=== PATIENT | female | born 1975 | race Caucasian/White ===

== ENCOUNTER 2021-12-16 15:22 | Outpatient (RCR) | payer OTHER, SELFPAY ==
--- NOTE | 2022-03-03 12:27 | PC.NURSE ---
Pt called today requesting a refill of her Letrozole. This was discussed with ASHOK Cantor and Dr. Yeboah.
== END 2022-06-14 23:59 | disposition home or self-care (01) ==
LOC: CCIC 15:22
PROVIDERS: PCP Family Medicine; Visit Provider Internal Medicine Hematology & Oncology
DX: C50.912 Malignant neoplasm of unspecified site of left female breast (principal); Z17.0 Estrogen receptor positive status [ER+]; Z79.811 Long term (current) use of aromatase inhibitors; R23.2 Flushing; K76.9 Liver disease, unspecified
CPT/HCPCS: 99212; 99213; 99214

== ENCOUNTER 2022-03-09 08:28 | Outpatient (CLI) | payer OTHER, SELFPAY ==
[2022-03-09 09:42] LABS: Albumin* 4.8 g/dL (3.3-5.0); Chloride* 105 mmol/L (96-114)
[2022-03-09 09:43] LABS: Potassium* 4.6 mmol/L (3.6-5.1); Sodium* 142 mmol/L (135-149)
[2022-03-09 09:45] LABS: Aspartate Amino Transferase* 26 U/L (12-35); Bilirubin Total* 0.8 mg/dL (0.1-1.5); Blood Urea Nitrogen* 20 mg/dL (5-24); Carbon Dioxide* 29 mmol/L (20-32); Cholesterol* 244 mg/dL (90-199); Creatinine* 0.9 mg/dL (0.5-1.5); Estimated Glomerular Filt Rate 79 ml/min; Glucose* 85 mg/dL (60-115); Total Protein* 7.3 g/dL (6.0-8.3)
[2022-03-09 09:46] LABS: Alanine Aminotransferase* 25 U/L (4-35); Alkaline Phosphatase* 76 U/L (40-150); Calcium* 10.1 mg/dL (8.4-10.6); HDL Cholesterol* 61 mg/dL (>=50); LDL Cholesterol Calculated 157 mg/dL (<100); Triglycerides* 128 mg/dL (40-149)
== END 2022-03-09 08:29 | disposition home or self-care (01) ==
LOC: NFLDREF 08:28
PROVIDERS: PCP Family Medicine; Visit Provider Family Medicine
DX: Z01.419 Encounter for gynecological examination (general) (routine) without abnormal findings (principal); E78.5 Hyperlipidemia, unspecified
CPT/HCPCS: 80053; 80061

== ENCOUNTER 2022-04-29 10:26 | Outpatient (RCR) | payer OTHER, SELFPAY ==
--- NOTE | 2022-05-07 10:45 | ONC.NURNOTE ---
Reviewed with pt changes in [facility] program and transition of Dr. Yeboah to [facility] returning Spring 2022. Pt would like to continue care here; scheduled to see Leanna Christianson CNP 06/17/22 for 6 mo f/u.
== END 2022-11-04 23:59 | disposition home or self-care (01) ==
PROVIDERS: PCP Family Medicine; Visit Provider Family Medicine
DX: G44.209 Tension-type headache, unspecified, not intractable (principal); R29.3 Abnormal posture; Z51.89 Encounter for other specified aftercare
CPT/HCPCS: 97110; 97161

== ENCOUNTER 2022-05-18 07:07 | Outpatient (CLI) | payer OTHER, SELFPAY | END 2022-05-18 07:08 | disposition home or self-care (01) | LOC: OP CLINIC 07:09 | PROVIDERS: PCP Family Medicine; Visit Provider Surgery | DX: Z12.11 Encounter for screening for malignant neoplasm of colon (principal); K64.4 Residual hemorrhoidal skin tags; K57.30 Diverticulosis of large intestine without perforation or abscess without bleeding | CPT/HCPCS: 45378; 99153; J2250; J2405; J3010 ==

== ENCOUNTER 2022-12-23 11:00 | Outpatient (RCR) | payer OTHER, SELFPAY | END 2023-01-01 23:59 | disposition home or self-care (01) | LOC: CCIC 11:00 | PROVIDERS: PCP Family Medicine; Visit Provider Physician Assistant | DX: C50.912 Malignant neoplasm of unspecified site of left female breast (principal); Z17.0 Estrogen receptor positive status [ER+]; Z79.811 Long term (current) use of aromatase inhibitors; R23.2 Flushing | CPT/HCPCS: 99212; 99213; 99214; 99215 ==

== ENCOUNTER 2023-04-07 07:40 | Outpatient (CLI) | payer OTHER, SELFPAY | END 2023-04-07 07:41 | disposition home or self-care (01) | LOC: NFLDREF 04-08 10:30 | PROVIDERS: PCP Family Medicine; Referring Provider Family Medicine; Visit Provider Family Medicine | DX: Z13.1 Encounter for screening for diabetes mellitus (principal); E78.2 Mixed hyperlipidemia | CPT/HCPCS: 80061; 82947 ==

== ENCOUNTER 2023-07-20 13:23 | Outpatient (CLI) | payer OTHER, SELFPAY ==
--- NOTE | 2023-07-20 13:30 | XR_ITS ---
Patient: FAHAD VALDERRAMA Facility:?[facility] Patient ID:?[id number] Site Patient ID:?[id number]. Site :?[id number] Study:?DEXA-Bone Density SPINE/BOTH HIPS-07/20/2023 1:45:23 PM Ordering Physician:JENNIFER Final Report: DXA BONE MINERAL DENSITY STUDY Current height (in): 65.0. Weight (lb): 160.0. Menopause age: 45. Ethnicity: White. Reason for exam: Monitoring on aromatase inhibitor. 1. Have you had a previous hip or vertebral fracture? No. 2. Have you had any fractures during your adult life which did not result from significant trauma (e.g., auto accident)? No. 3. Did either of your parents have a hip fracture? No. 4. Do you smoke? No. 5. Have you ever taken Glucocorticoids? No. 6. Do you have rheumatoid arthritis? No. 7. Do you have secondary osteoporosis? No. 8. Do you drink 3 or more alcoholic drinks per day? No. 9. Are you being treated for osteoporosis? No. 10. Have you ever taken any of the following medications: Actonel, Evista, Fosamax, Miacalcin, Reclast, Boniva, Forteo, HRT (i.e. estrogen/hormone therapy), Protelos, Prolia, Vitamin D, Calcium, other ? please specify. ANSWER: Yes, vitamin D, calcium, fish oil, magnesium 11. Do you have any of the following medical conditions: Anorexia or bulimia, asthma or emphysema, end stage renal disease, hyperparathyroidism, any seizure disorders, cancer, inflammatory bowel diseases, hysterectomy, other ? please specify. ANSWER: Yes, breast cancer, hysterectomy. 12. What was your maximum height (inches)? 66. 13. Do you perform weight bearing exercise regularly? No. 14. Do you regularly consume dairy products? Yes. 15. Do you drink caffeinated beverages? Yes. 16. At what age did your period start? 11. 17. Are you premenopausal? No. 18. How many full term pregnancies have you had? 2. 19. Have you ever missed your period for more than 6 months in a row (not including or menopause)? No. TECHNIQUE: Bone mineral density study was performed using the Horizon Wi. FINDINGS: The results of the study expressed as bone mineral density (BMD) are as follows: Lumbar spine L1 to L4: BMD: 0.859 g/cm2. T-score: -1.7. Z-score: -1.0. Neck Left: BMD: 0.671 g/cm2. T-score: -1.6. Z-score: -0.9. Right: BMD: 0.790 g/cm2. T-score: -0.5. Z-score: 0.2. Total Left: BMD: 0.820 g/cm2. T-score: -1.0. Z-score: -0.6. Right: BMD: 0.976 g/cm2. T-score: 0.3. Z-score: 0.7. IMPRESSION: Osteopenia. *Comparison exams done prior to 09/2019 were performed on different unit, Gridsum. COMPARISON: Compared with scan of 08/12/2021, the bone mineral density has decreased by 6.0 percent at the spine and decreased by 1.8 percent at the hip. FRAX 10-year Fracture Risk Major Osteoporotic Fracture: 4.5 percent Hip Fracture: 0.4 percent Reported Risk Factors: [place] () Neck BMD = 0.671, BMI = 26.6 Porter Faria M.D. Diagnostic Radiologist [email or web address] ALEX/christinaw: D& Transcribed: 8:58 pm DW/Dictated by: Porter Faria MD @ 07/21/2023 8:22:00 AM Signed by:?Porter Faria MD @07/21/2023 9:31:55 AM (Electronic Signature)
== END 2023-07-20 13:24 | disposition home or self-care (01) ==
LOC: RAD 13:23
PROVIDERS: PCP Family Medicine; Visit Provider Physician Assistant
DX: M85.88 Other specified disorders of bone density and structure, other site (principal); Z79.811 Long term (current) use of aromatase inhibitors
CPT/HCPCS: 77080

== ENCOUNTER 2023-07-21 07:23 | Outpatient (RCR) | payer OTHER, SELFPAY | END 2023-11-22 23:59 | disposition home or self-care (01) | LOC: CCIC 07:23 | PROVIDERS: PCP Family Medicine; Visit Provider Physician Assistant | DX: C50.912 Malignant neoplasm of unspecified site of left female breast (principal); Z17.0 Estrogen receptor positive status [ER+]; Z79.811 Long term (current) use of aromatase inhibitors; R23.2 Flushing; T45.1X5A Adverse effect of antineoplastic and immunosuppressive drugs, initial encounter; N64.4 Mastodynia; M85.80 Other specified disorders of bone density and structure, unspecified site | CPT/HCPCS: 99214; G0463 ==

== ENCOUNTER 2023-10-31 08:40 | Outpatient (CLI) | payer OTHER, SELFPAY ==
--- OUTSIDE RECORDS SUMMARY | 2023-10-31 13:05 | XMS_ITS | Referral Summary ---
Author Organization [facility] Address [address] [place] [address] Care Team Providers Care Vice President Of Consulting Services Name Role Phone Unavailable Primary Care Provider Unavailabl e Allergies No known active allergies Medications Medication Sig Dispensed Refills Start Date End Date Status Inulin (FIBER CHOICE PREBIOTIC FIBER) 1.5 g CHEW Active cholecalciferol (D3-1000) 1000 units TABS Active calcium polycarbophil (FIBERCON) 625 MG tablet Take 625 mg by mouth Active Ascorbic Acid 500 MG CHEW Active Magnesium 400 MG TABS Act chitra Multiple Vitamins-Minerals (MULTIVITAMIN ADULT) CHEW Active Social History Tobacco Use Types Packs/Day Years Used Date Smoking Tobacco: Former Cigarettes 0.5 5 0 10/15/1993 - 10/15/1998 Smokeless Tobacco: Never Tobacco Cessation:Counseling Given: No Alcohol Use Standard Drinks/Week Comments No 0 (1 standard drink = 0.6 oz pur e alcohol) PHQ-2 Answer Date Recorded PHQ-2 Score 0 03/28/2018 Adolescent Education Answer Date Record ed Getting School Help Needed Not on file 01/07 Sex and Gender Information Value Date Recorded Sex Assigned at Female 03/27/2018 5:19 PM HUMIDIFIER MAINTENANCE WORKER Gender Identity Female 03/27/2018 5:19 PM HUMIDIFIER MAINTENANCE WORKER Sexual Orientation Straight 03/27/2018 5: 19 PM HUMIDIFIER MAINTENANCE WORKER Last Filed Vital Signs Vital Sign Reading Time Taken Comments Blood Pressure 133/82 07/25/2018 9:07 AM CDT Pulse 78 07/25/2018 9:07 AM CDT Temperature - - Respiratory Rate - - Oxygen Saturation 98% 07/25/2018 9:07 AM CDT Inhaled Oxygen Concentration - - Weight 67.1 kg (148 lb) 07/25/2018 9:07 AM CDT Height 165.1 cm (5' 5) 07/25/2018 9:07 AM CDT Body Mass Index 24.63 07/25/2018 9:07 AM CDT Plan of Treatment Not on file
--- OUTSIDE RECORDS SUMMARY | 2023-10-31 13:05 | XMS_ITS | Clinical Summary ---
Author Organization [facility] Address [address] [place] [id number] Care Team Providers Care Railroad Construction Director Name Role Phone Unavailable Primary Care Provider [...] chitra Multiple Vitamins-Minerals (MULTIVITAMIN ADULT) CHEW Active Family History Medical History Relation Comments Cancer Maternal Grandfather Esophogeal Hypertension Maternal Grandmother Thyroid Disease Maternal Grandmother Hypertension Mother Osteoporosis Mother Thyroid Disease Mother Unknown/Adopted Paternal Grandfather Cerebrovascular Disease Paternal Grandmother Hypertension Paternal Grandmother Thyroid Disease Paternal Grandmother Relation Status Comments Maternal Grandfather Maternal Grandmother Mother Paternal Grandfather Paternal Grandmother Social History Tobacco Use Types Packs/Day Years [...] Sex Assigned at Female 03/27/2018 5:19 PM SEED PRODUCTION FIELD SUPERVISOR Gender Identity Female 03/27/2018 5:19 PM SEED PRODUCTION FIELD SUPERVISOR Sexual Orientation Straight 03/27/2018 5: 19 PM SEED PRODUCTION FIELD SUPERVISOR Last Filed Vital Signs Vital Sign Reading [...]
--- OUTSIDE RECORDS SUMMARY | 2023-10-31 13:06 | XMS_ITS | Clinical Summary ---
Author Organization [facility] Address [place], [place] [address] Care Team Providers Care Mason Foreman/Superintendant Name Role Phone Giulia Angeles MD Primary Care Provider + Jessenia Hammond MD Unavailable [phone] Allergies No known active allergies Medications Medication Sig Dispensed Refills Start Date End Date Status calcium polycarbophil (FIBERCON) 625 mg tablet Take 625 mg by mouth. Active cholecalciferol (VITAMIN D3) 1,000 unit tablet Active magnesium oxide 400 mg magnesium tab Active multivit with min-folic acid (ADULT MULTIVITAMIN GUMMIES) 200 mcg chew Active omega-3 acid ethyl esters (LOVAZA;OMACOR) 1 gram capsule Take 2 g by mouth. Active ascorbic acid chewable (VITAMIN C) 500 mg tablet Active inulin-sorbitol (FIBER CHOICE, INULIN-SORBITOL,) 1.5 gram chew Active ibuprofen (ADVIL; MOTRIN) 600 mg tabletIndications:Breas t cancer (HC) Take 1 tablet by mouth every 6 hours if needed for Pain. Maximum of 3200 mg in 24 hours. 0 03/05/2019 Active calcium carbonate (CALCIUM 500) 500 mg calcium (1,250 mg) tablet Take 1 tablet by mouth 3 times daily with meals. 0 01/15/2020 Active letrozole (FEMARA) 2.5 mg tablet Take 1 Tablet (2.5 mg) by mouth once daily. 0 03/05/2022 Active vitamin D3-vitamin K2, MK4, (K2 Plus D3) 1,000-100 unit-mcg tab tablet Take 1 Tablet by mouth once daily. 0 03/05/2022 Active Active Problems Problem Noted Date Diagnosed Date Malignant neoplasm of upper- outer quadrant of left breast in female, estrogen receptor positive Encounters Date Type Department Care Team Description 08/24/2023 Telephone [facility] [address] [facility] [address] [place] [address] Rosi Tobias NP Courtesy call re; calcium score 08/01/2023 8:30 AM CDT Ancillary Procedure [facility] [address] [place] [address] [address] [place] [address] 08/01/2023 Travel from Last 3 Months Immunizations Name Administration Dates Next Due COVID-19 vaccine (Tesfaye-J&J) MARGAUX GREEN 1 Family History Medical History Relation Name Comments Esophageal cancer Maternal Grandfather Heart attack Mother Cancer-breast Other 1 mat great aunt Cancer-breast Other 2 mom's 1st cous in Cancer Paternal Grandfather blood c ancer Cancer-colon No Family History Cancer-ovarian No Family History Cancer-pancreatic No Family History Cancer-prostate No Family History Melanoma No Family History Relation Name Status Comments Maternal Grandfather Mother Other 1 Other 2 Paternal Grandfather Social History Tobacco Use Types Packs/Day Years Used Date Smoking Tobacco: Former Cigarettes 1 5 1 7 - 2001 Smokeless Tobacco: Never Alcohol Use Standard Drinks/Week Comments Yes 1 (1 standard drink = 0.6 oz pur e alcohol) 2 times a month Social Connections Answer Date Recorded Frequency of Communication with Friends and Fami ly Not on file 03/16/2023 Financial Resource Strain Answer Date R ecorded Difficulty of Paying Living Expenses Not on file 04/18/2021 Difficulty of Paying Living Expenses Not on file 04/18/2021 Sex and Gender Information Value Date Recorded Sex Assigned at Female 06/26/2020 1:03 PM FOOD PROCESSING SCIENTIST Gender Identity Female 06/26/2020 1:03 PM FOOD PROCESSING SCIENTIST Sexual Orientation Straight 06/26/2020 1: 03 PM FOOD PROCESSING SCIENTIST Obstetrics History Last Filed Vital Signs Vital Sign Reading Time Taken Comments Blood Pressure 117/74 03/16/2023 1:14 PM FOOD PROCESSING SCIENTIST Pulse 73 03/16/2023 1:14 PM FOOD PROCESSING SCIENTIST Temperature 36.7 ??C (98.1 ??F) 03/16/2023 1:14 PM CS T Respiratory Rate 16 03/16/2023 1:14 PM FOOD PROCESSING SCIENTIST Oxygen Saturation 100% 03/09/2019 9:24 AM FOOD PROCESSING SCIENTIST Inhaled Oxygen Concentration - - Weight 73.3 kg (161 lb 9.6 oz) 03/16/2023 1:14 P M FOOD PROCESSING SCIENTIST Height 165.1 cm (5' 5) 03/16/2023 1:14 PM FOOD PROCESSING SCIENTIST Body Mass Index 26.89 03/16/2023 1:14 PM FOOD PROCESSING SCIENTIST Plan of Treatment Health Maintenance Due Date Last Done Comments Tdap 1985 Depression screening for age 12+ 1986 HIV for age 15-65 1989 Hepatitis C screening for age 18-79 1992 Tetanus booster 1994 Pap test for age 21-65 07/19/2014 2, 07/20/2011, 06/18/2010 Colonoscopy through age 75 2019 Lipids for age 45-75 2019 COVID-19 vaccine series ( season) 2022 04/20/2021, 06/28/2020 Influenza for age 9-49 12/18/2023 BMI (ht and wt on same day) for age 18+ 03/16/2024 03/16/2023, 03/05/2022, 02/13/2021, Additional history exists Mammogram for age 45-75 03/16/2024 03/16/20 23, 03/05/2022, 02/13/2021, Additional history exists Pneumococcal series for age 6-64 Aged Out No longer eligible based on patient's age to complete this topic Procedures Procedure Name Priority Date/Time Associated Diagnosis Comments CT CARDIAC CALCIUM SCORE ONLY WO SINGLE READ Routine 08/01/2023 8:51 AM CDT Screening for cardiovascular condition XR MAMMO PRETTY BILAT SCREEN Routine 03/16/2023 12:52 PM FOOD PROCESSING SCIENTIST Visit for screening mammogram HPV THIN PREP Timed 07/20/2011 1:18 PM CDT from Last 3 Months or Most Recently Relevant to Health Maintenance Results * CT CARDIAC CALCIUM SCORE ONLY WO SINGLE READ (08/01/2023 8:51 AM CDT) Anatomical Region Laterality Modality Computed Tomogra phy Impressions 08/01/2023 6:46 PM CDT ??There are no acute or suspicious extracardiac imaging abnormalities. Please note that all CT scans at this facility use dose modulation, iterative reconstruction and/or weight-based dosing when appropriate to reduce radiation dose to as low as reasonably achievable. ?? William Bonilla M.D. Pediatric/Diagnostic Radiologist Cardiothoracic Imaging [email or web address]/rcd ?? Narrative 08/01/2023 6:46 PM CDT For Patients: As a result of the Century Cures Act, medical imaging exams and procedure reports are released immediately into your electronic medical record. ??You may view this report before your referring provider. ?? If you have questions, please contact your health care provider. CT CARDIAC CALCIUM SCORING, 08/01/2023 PATIENT HISTORY: Screening for cardiovascular condition. ?? REPORT: High-resolution, ECG-synchronized noncontrast computed tomography of the heart with attention to the coronary arteries was performed. Coronary calcification analyzed using Siemens calcium scoring software. These are the results of the evaluation. CT Calcium Scoring: This cardiac CT examination will provide you with a coronary artery calcium score. A coronary artery calcium score is a measurement of the amount of calcified plaque in the coronary arteries, the arteries that supply blood to the heart muscle. The coronary artery calcium score is calculated based on the number, size, and density of the calcified plaques in the coronary arteries. The amount of calcified coronary plaque has been shown to directly correlate with future risk for heart disease. The coronary artery calcium is a marker of how much plaque has accumulated in the dunaway of the coronary arteries. It is not a test for blockages. This test is intended to assess cardiovascular risk in patients without symptoms. It is not intended to be a test for individuals with chest pain or other possible symptoms suggestive of heart disease. If you are having chest pain or other potential cardiovascular symptoms, see your physician. Calcium Score: Left main = 0 Left anterior descending = 11 Left circumflex = 0 Right coronary artery = 0 Total calcium score = 11 This places the patient at the 92nd percentile for matched age and gender. Calcified Plaque Seen Assessment: ? ? Your cardiac CT examination demonstrates plaque in the coronary arteries. ? ? The amount of plaque in the coronary arteries directly correlates with the risk for heart attack and other coronary events (such as bypass or stenting). ? ? As discussed above, the coronary artery calcium score is intended for risk assessment in patients without cardiovascular symptoms. If you are having chest pain or other potential cardiovascular symptoms, see your physician. Recommendations: ? ? To lower your cardiovascular risk, we strongly recommend adherence to healthy lifestyle behaviors including: ?Following a heart healthy diet focused on modest portion sizes, a high intake of fresh fruits and vegetables, whole grains, healthy fats (olive oil, nuts and seeds, avocados), and healthy proteins (unprocessed meats, fish, legumes). ? Following an active lifestyle including 30-45 minutes of moderate intensity exercise 5-6 times per week. ?Avoidance of tobacco products. ? ? Cardiovascular preventive medication, including a daily aspirin and cholesterol-lowering statin medications have been shown to reduce the risk of a future heart attack and stroke, especially in individuals at higher risk for heart disease. ? ? We recommend that individuals with calcified plaque discuss the risks and benefits of cholesterol-lowering medications, blood pressure medications, and aspirin with their primary care physician. Cholesterol-lowering medications have been shown to reduce the risk of heart attack in individuals at elevated risk, including in patients with ? normal? cholesterol levels at baseline. ? ? A coronary artery calcium score is not a test for blockages, it is a test for underlying plaque. An elevated calcium score is not an indication for additional testing for coronary heart disease though one may be considered based on your clinical history. The results of your coronary artery calcium score should be reviewed by your primary care provider or senior operations analyst. ? ? These recommendations are generalized and may not specifically apply to you as an individual. Your primary care physician is in the best position to provide advice on your care and clinical decisions should ultimately be made by you and your physician. Referral Self CT * XR MAMMO PRETTY BILAT SCREEN (03/16/2023 12:52 PM FOOD PROCESSING SCIENTIST) Anatomical Region Laterality Modality BREASTS, Breast Left, Breast Right Bilateral Mammography Impressions 03/16/2023 12:55 PM FOOD PROCESSING SCIENTIST ??There is no radiographic evidence for malignancy. ??Recommend annual mammograms. MAMMOGRAM ASSESSMENT: ??ACR 2 Benign PATIENTS: You will also receive a letter with your examination results in an easy to read format. ??If you have questions about your results, please contact your referring provider. Narrative 03/16/2023 12:55 PM FOOD PROCESSING SCIENTIST For Patients: As a result of the Cures Act, medical imaging exams and procedure reports are released immediately into your electronic medical record. You may view this report before your referring provider. If you have questions, please contact your health care provider. XR MAMMO PRETTY BILAT SCREEN [[id number]] CLINICAL HISTORY: ??This is an asymptomatic 47 y.o. patient. INDICATION FOR EXAM: Mammogram Screening. TECHNIQUE: CC & MLO views were obtained. ??This study was evaluated with the assistance of Computer-Aided Detection. Breast Tomosynthesis was used in interpretation. COMPARISON FILMS: Yes 03/05/22 [facility] 02/13/21 [facility] FINDINGS: ??The breasts are heterogeneously dense, which may obscure small masses. ??No suspicious masses or microcalcifications. ??There are post treatment changes of left breast. Giulia Angeles MD MAMMO * HPV THIN PREP (07/20/2011 1:18 PM CDT) SPECIMEN/SOURC E Thin prep [facility] HPV RESULTS High Risk HPV Negative. HPV types 16,18,31, 33,35,39, 45,51,52, 56,58,59, 66 and 68 DNA were undetecta ble or below the pre-set threshold . Methodolo gy: Leena Lee Ann [address] [facility] 07/20/2011 1:18 PM CDT 07/22/2011 1:18 PM CDT Selma Daniels MD MICROBIOLOGY [facility] INTERNAL ZIP [address] [place] [address] from Last 3 Months or Most Recently Relevant to Health Maintenance Advance Directives * Full Code (Latest Code Status on File) Date Activated Date Inactivated Comments 03/09/2019 6:37 AM 03/09/2019 11:54 AM * Full Code Date Activated Date Inactivated Comments 03/05/2019 9:04 AM 03/06/2019 9:25 AM Care Teams Mason Foreman/Superintendant Relationship Specialty Start Date End Date Giulia Angeles MD [address] [place] [address] PCP - General Family Practice 01/31/19 Jessenia Hammond MD [address] [place] [address] Surgery - Oncology 02/13/19
--- OUTSIDE RECORDS SUMMARY | 2023-10-31 13:06 | XMS_ITS | Clinical Summary ---
Author Organization [facility] Address [address] [place] [address] Care Team Providers Care Digital Account Executive Name Role Phone Shanelle Jurado MD Primary Care Provider U mattie Source Comments You are receiving this document as you are listed as the primary care provider,follow-up provider, or the patient has been referred to you for consultation.This is in compliance with the Medicare and[facility] EHR Incentive Program,which states Providers who transition their patient to another setting of careor provider of care or refers their patient to another provider of care shouldprovide summary care record for each transition of care or referral. [facility] Allerg[facility] No known active allergies Medications Medication Sig Dispensed Refills Start Date End Date Status calcium polycarbophil (FIBERCON) 625 MG tabletIndications:Hair loss,Fatigue, unspecified type,Dizziness,Abnormal weight gain Take 625 mg by mouth daily. Active magnesium oxide (AKA MAG-OX) 500 MG tabletIndications:Hair loss,Fatigue, unspecified type,Dizziness,Abnormal weight gain Take 500 mg by mouth daily. Active omega-3 fatty acids (MAXEPA,FISHOIL) 1000 MG capsuleIndications:Hair loss,Fatigue, unspecified type,Dizziness,Abnormal weight gain Take 2 g by mouth daily. Active cholecalciferol (VITAMIND3) 2000 UNITS tabletIndications:Hair loss,Fatigue, unspecified type,Dizziness,Abnormal weight gain Take 2,000 Units by mouth daily. Active MULTIPLE VITAMIN ORIndications:Hair loss,Fatigue, unspecified type,Dizziness,Abnormal weight gain Active Ascorbic Acid (VITAMIN C ADULT GUMMIES OR)Indications:Hair loss,Fatigue, unspecified type,Dizziness,Abnormal weight gain Active losartan (COZAAR) 50 MG tabletIndications:Hair loss,Fatigue, unspecified type,Dizziness,Abnormal weight gain Take 0.5 Tabs by mouth daily. 0 03/17/2016 Active Active Problems Problem Noted Date Diagnosed Date Essential (primary) hypertension 03/17/2016 Social History Tobacco Use Types Packs/Day Years Used Date Smoking Tobacco: Former Cigarettes Q uit: 03/17/2003 Sex and Gender Information Value Date Recorded Sex Assigned at Not on file Gender Identity Not on file Sexual Orientation Not on file Last Filed Vital Signs Vital Sign Reading Time Taken Comments Blood Pressure 104/62 03/17/2016 9:40 AM CAPACITY PLANNING MANAGER Pulse 80 03/17/2016 9:40 AM CAPACITY PLANNING MANAGER Temperature - - Respiratory Rate - - Oxygen Saturation - - Inhaled Oxygen Concentration - - Weight 68 kg (150 lb) 03/17/2016 9:40 AM CAPACITY PLANNING MANAGER Height 166.4 cm (5' 5.5) 03/17/2016 9:40 AM CAPACITY PLANNING MANAGER Body Mass Index 24.58 03/17/2016 9:40 AM CAPACITY PLANNING MANAGER Plan of Treatment Health Maintenance Due Date Last Done Comments Cervical Cancer Screening Due 1974 Colon Cancer Screening Plan Due 1974 Hep C Screening (Preventive Services) 1974 Mammogram 1974 HIV Screening (Preventive Services) 1990 Adult Preventive Visit 1992 DTaP/Tdap/Td (1 - Tdap) 1993 HepB (1) 1993 Cholesterol 2019 COVID-19 Vaccine (1 - 2022-2 4 season) 2022 Influenza (#1) 2023 Zoster/Shingles (1 of 2) 2024 HepA Aged Out No longer eligi ble based on patient's age to complete this topic Hib Aged Out No longer eligi ble based on patient's age to complete this topic IPV (Polio) Aged Out No longer eligi ble based on patient's age to complete this topic MCV4 Aged Out No longer eligi ble based on patient's age to complete this topic Pneumococcal Aged Out No longer eligi ble based on patient's age to complete this topic Care Teams Digital Account Executive Relationship Specialty Start Date End Date Shanelle Jurado MD PCP - General Obstetrics Gynecology 12/31/15
== END 2023-10-31 08:41 | disposition home or self-care (01) ==
LOC: NFLDREF 13:03
PROVIDERS: PCP Family Medicine; Referring Provider Family Medicine; Visit Provider Family Medicine
DX: E78.5 Hyperlipidemia, unspecified (principal)
CPT/HCPCS: 80061

== ENCOUNTER 2024-04-05 07:41 | Outpatient (CLI) | payer OTHER, SELFPAY | END 2024-04-05 07:42 | disposition home or self-care (01) | LOC: NFLDREF 04-06 08:12 | PROVIDERS: PCP Family Medicine; Referring Provider Family Medicine; Visit Provider Family Medicine | DX: E78.5 Hyperlipidemia, unspecified (principal); Z13.1 Encounter for screening for diabetes mellitus | CPT/HCPCS: 80061; 82947 ==

== ENCOUNTER 2024-05-21 09:50 | Outpatient (RCR) | payer OTHER, SELFPAY | END 2024-08-25 23:59 | disposition home or self-care (01) | LOC: CCIC 09:50 | PROVIDERS: PCP Family Medicine; Visit Provider Physician Assistant | DX: C50.912 Malignant neoplasm of unspecified site of left female breast (principal); Z17.0 Estrogen receptor positive status [ER+]; M85.80 Other specified disorders of bone density and structure, unspecified site; Z79.811 Long term (current) use of aromatase inhibitors | CPT/HCPCS: 99214; G0463 ==